=== PATIENT | female | born 1955 | race Caucasian/White ===

== ENCOUNTER 2019-04-17 16:12 | Outpatient (CLI) | payer MEDICARE, BC ==
[~2019-04-17] VITALS: Ht 157.5 cm; Wt 52.3 kg
[2019-04-17 16:58] VITALS: BP 147/85; Ht 157.5 cm; Wt 52.3 kg
[2019-04-17] MEDS ORDERED: TRAZODONE HCL150 MG PO (18:01)
[2019-04-17] MEDS ORDERED: SINGULAIR10 MG PO (18:02)
[2019-04-17] MEDS ORDERED: PEPCID40 MG PO (18:02)
[2019-04-17] MEDS ORDERED: MYSOLINE 50 MG50 MG PO (18:03)
[2019-04-17] MEDS ORDERED: COMBIVENT RESPIM4 GM INH (18:04)
[2019-04-17] MEDS ORDERED: BUPROPION HCL75 MG PO (18:07)
[2019-04-17] MEDS ORDERED: CYMBALTA60 MG PO (18:08)
[2019-04-17 19:22] LABS: BASOPHILS 0.5 % (0-2); EOSINOPHILS 1.6 % (0-7); HEMATOCRIT 40.6 % (36.0-48.0); HEMOGLOBIN 13.6 g/dL (12-16); MCH 33.7 pg (26.0-34.0); MCHC 33.5 g/dL (31.0-37.0); MCV 100.5 fL (80.0-100.0); MEAN PLATELET VOLUME 9.8 fL (7.4-10.4); MONOCYTES 10.7 % (2-11); NEUTROPHILS 46.2 % (40-80); PLATELET COUNT 143 10x3/uL (130-400); RBC 4.04 10x6/uL (4.00-5.40); WBC 3.7 10x3/uL (4.8-10.8)
[2019-04-17 19:33] LABS: APTT 26.6 SECONDS (22.8-39.4); INR 1.02 (0.85-1.17); PROTIME 12.9 SECONDS (11.6-15.0)
[2019-04-17 19:35] LABS: CALC OSMOLALITY 281 mosm/kg (275-300); CALCIUM 9.2 mg/dL (8.5-10.1); CARBON DIOXIDE 27.8 mmol/L (21.0-32.0); CHLORIDE - SERUM 103 mmol/L (98-107); CREATININE - SERUM 0.5 mg/dL (0.6-1.3); GLUCOSE 78 mg/dL (74-106); POTASSIUM - SERUM 3.8 mmol/L (3.5-5.1); SODIUM 142 mmol/L (136-145); UREA NITROGEN 13 mg/dL (7-18); eGFR NON AFRICAN AMERICAN > 90 mL/min (90-120)
[2019-04-17 19:39] LABS: AMYLASE - SERUM 45 U/L (25-115); LIPASE 166 U/L (73-393); MAGNESIUM - SERUM 1.9 mg/dL (1.8-2.4)
[2019-04-17 21:00] VITALS: BP 149/81
--- NOTE | 2019-04-17 21:44 | NUR ---
DISCHARGE INSTRUCTIONS GIVEN. REMOVED IV TO RIGHT AC WITH CATHETER TIP INTACT. PRESSURE DRESSING APPLIED. PT ESCORTED OUT IN WHEELCHAIR BY CHANNEL EXECUTIVE, WITH FAMILY MEMBER AT HER SIDE. ESCORTED TO AWAITING VEHICLE WITH FAMILY MEMBER. TOLD TO CALL TONIGHT OR RETURN TO ER IF ANY PROBLEMS ARISE.
== END 2019-04-17 21:46 | disposition home or self-care (01) ==
LOC: OBSVTIME → D.MS 16:12 → D.OPS 16:12 → D.MS 16:12 → D.OPS 21:46 → D.MS 21:46 → EDSTATUS 04-20 11:56 → D.OPS 04-20 11:57
PROVIDERS: ATTEND Internal Medicine Nephrology
DX: R10.9 Unspecified abdominal pain (principal)

== ENCOUNTER 2019-10-27 07:39 | Day surgery (SDC) | payer MEDICARE, BC ==
[~2019-10-27] VITALS: Ht 157.5 cm; Wt 50.0 kg
[~2019-10-27 07:39] MED LIST: BUPROPION HCL75 MG PO; COMBIVENT RESPIM4 GM INH; CYMBALTA60 MG PO; MYSOLINE 50 MG50 MG PO; PEPCID40 MG PO; SINGULAIR10 MG PO; TRAZODONE HCL150 MG PO
[2019-10-27 08:33] VITALS: BP 128/78; Ht 157.5 cm; Wt 50.0 kg
[2019-10-27 08:33] LABS: HEMATOCRIT 44.7 % (36.0-48.0); HEMOGLOBIN 15.1 g/dL (12-16); MCH 33.8 pg (26.0-34.0); MCHC 33.8 g/dL (31.0-37.0); MEAN PLATELET VOLUME 9.7 fL (7.4-10.4); RBC 4.47 10x6/uL (4.00-5.40); RDW 12.1 % (11.5-14.5); WBC 3.8 10x3/uL (4.8-10.8)
[2019-10-27] MEDS ORDERED: CALCIUM 500 +1 EAC3 PO (08:41)
[2019-10-27] MEDS ORDERED: FOLATE0.4 MG PO (08:41)
[2019-10-27] MEDS ORDERED: VITAMIN B-122500 MCG INJ (08:42)
--- NOTE | 2019-10-27 12:56 | NUR ---
1230 DRESSED. AWAKE & ALERT. GIVEN DISCHARGE INFORMATION INCLUDING MED REC, RTC APPT., POST ENDOSCOPIC PROCEDURES OUTPATIENT D/C INSTRUCTIONS. PT VOICED UNDERSTANDING. TO PRIVATE CAR PER WHEELCHAIR BY STAFF. HOME WITH FRIEND, ONOFRE LISA. Rajiv DUBOIS R.N.
--- NOTE | 2019-10-29 16:31 | OP ---
PATIENT NAME: MARYANNE DOMINIQUE MEDICAL RECORD: [id number] :55 LOCATION:[facility] ADMISSION DATE: SURGEON: CONSTANTINE CABRAL MD DATE OF OPERATION: 10/27/2019 PREOPERATIVE DIAGNOSES: 1. Weight loss. 2. History of Clostridium difficile colitis. 3. Chronic nausea. 4. Lack of appetite. POSTOPERATIVE DIAGNOSES: 1. Weight loss. 2. History of Clostridium difficile colitis. 3. Chronic nausea. 4. Lack of appetite. 5. Possible Mosqueda to the distal esophagus. 6. Prepyloric gastritis, mild. 7. No evidence of colitis or proctitis. No evidence of ileitis. 8. Tortuous and dilated ileum. 9. No anastomotic stricture. PROCEDURES: 1. Esophagogastroduodenoscopy with mid esophageal biopsies, distal esophageal biopsies to rule out Mosqueda's as well as antral biopsies to rule out Helicobacter pylori. 2. Total proctoscopy/colonoscopy with random biopsies. Also, stool cultures and stool studies. 3. Ileoscopy with biopsies. SURGEON: Constantine Cabral MD ENGINEERING INSTRUCTOR: None. BLOOD LOSS: Minimal. ANESTHESIA: IV sedation. COMPLICATIONS: None. DESCRIPTION OF PROCEDURE: The patient was conveyed to endoscopy suite electively on 10/27/2019. IV sedation was induced by the anesthesia staff. A bite block was inserted. A gastroscope was inserted into the mouth. It was advanced easily into the hypopharynx. The esophagus was easily intubated as was stomach and duodenum. Upon withdrawal, retroflexed and angulus views were obtained. Antral biopsies were obtained. These were cold endoscopic biopsies. Distal esophageal biopsies were obtained and again here these were cold endoscopic biopsies. Mid esophageal biopsies were then performed to rule out eosinophilic esophagitis. The patient was turned 180 degrees and placed in the Rowland position. A digital rectal examination was performed. A colonoscope was inserted through the anus. It was easily advanced up to the anastomosis, which was at 20 cm. I then intubated the ileum. There was no evidence of stricturing. No evidence of ileitis. Random ileal biopsies were obtained. I then withdrew back into the OPERATIVE REPORT [id number] MARYANNE DOMINIQUE colon. I noted no polyps, no masses. There was some formed stool within the rectum. Random colon and rectal biopsies were obtained. There was perhaps a small bit of colon, but it was mainly rectum that was left. Stool cultures were obtained for a culture sensitivity as well as multiple stool studies. A retroflexed view was obtained in the rectum. I then unretroflexed the scope and removed it under direct vision. I will see the patient in my office in 2-3 weeks. TRANSINT:[id number] Voice Confirmation ID: [id number] DOCUMENT ID: [id number] CONSTANTINE CABRAL MD at 1631 CC: GURWINDER PENN DO [id number] DICTATION DATE: 10/27/19 1155 CARPENTER ASSEMBLER: 10/27/19 1740 [facility] 10/27/19 [facility] [address] [place] [address]
[2019-10-29 17:08] LABS: OVA + PARASITE EXAM Final report (())
== END 2019-10-27 12:30 | disposition home or self-care (01) ==
LOC: D.OPS 07:39
PROVIDERS: Anesthesiology; ATTEND Surgery
DX: R63.4 Abnormal weight loss (principal); R11.0 Nausea; R63.0 Anorexia; Z87.19 Personal history of other diseases of the digestive system

== ENCOUNTER 2019-12-25 06:25 | Day surgery (SDC) | payer MEDICARE, BC ==
[~2019-12-25] VITALS: Ht 157.5 cm; Wt 49.9 kg
--- NOTE | ~2019-12-25 | OP ---
PATIENT NAME: MARYANNE DOMINIQUE MEDICAL RECORD: [id number] :55 LOCATION:[facility] ADMISSION DATE: SURGEON: CONSTANTINE CABRAL MD DATE OF OPERATION: 12/25/2019 PREOPERATIVE DIAGNOSIS: Biliary dyskinesia. POSTOPERATIVE DIAGNOSES: Biliary dyskinesia with symptomatic gallstones. PROCEDURES: 1. Laparoscopic cholecystectomy. 2. Intraoperative cholangiography without immediate surgeon interpretation. SURGEON: Constantine Cabral MD GAS SUBSTATION OPERATOR: None. BLOOD LOSS: Minimal. ANESTHESIA: General. DRAINS: A 10-Albanian round [place] drain COMPLICATIONS: None. The risks, possible complications and alternatives to the procedure were explained to the patient. She elects to proceed. The discussion specifically included, but was not limited to, bleeding requiring emergency reoperation, infection, intestinal injury as well as an open procedure. OPERATIVE COURSE: The patient was conveyed to the operating room electively on 12/25/2019. General anesthesia was induced by the anesthesia staff. I elected for a cutdown procedure as the patient has undergone a subtotal colectomy and likely will have significant intra-abdominal adhesions. Through the patient's midline scar, an incision was accomplished. I dissected down to the fascia. Stay sutures of 0 Vicryl were placed in the midline one cephalad to the other. An incision was accomplished. The peritoneal cavity was entered bluntly. CO2 insufflation was begun. Indeed, there were extensive intraabdominal adhesions. This necessitated a fifth port. Two 5-mm ports were placed in the right side of the abdomen. I began a sharp adhesiolysis. The adhesiolysis took 35 minutes. At no time was there any apparent intestinal injury. I created enough working space, so that 2 more trocars were inserted. One was inserted in the epigastrium. Another one was inserted in the right upper quadrant. I grasped the gallbladder. I advanced a cholangiogram trocar. I punctured the fundus of the gallbladder. I then aspirated bile. I injected dye. Under real time fluoroscopy, this could be seen filling the bile ducts. The cholangiogram trocar was removed. The gallbladder was grasped and retracted cephalad. The infundibulum was grasped and retracted laterally. Blunt dissection was begun in triangle of Calot. One cystic artery and one cystic duct were identified. These were clipped multiply and divided between clips. The gallbladder was then excised from its bed in the liver. It was placed within a bag retrieval device and was withdrawn through the 12-mm trocar site. OPERATIVE REPORT [id number] MARYANNE DOMINIQUE A 12-mm trocar was replaced and the abdomen reinsufflated. I irrigated and aspirated the right upper quadrant. There was no bleeding even at low pressure of 8. The trocars were removed and the abdomen desufflated. The fascia at the 12-mm trocar site was closed with interrupted horizontal mattress 0 Vicryls. The drain was sutured to skin with a 4-0 nylon. The skin at all the operative sites was closed with interrupted intracuticular 3-0 Vicryls. Benzoin and Steri-Strips were applied. The patient was then extubated and conveyed to post-anesthesia care unit where she was in stable condition. The patient will be taught drain care. She is going to follow up with me in the office next week for the drain removal. TRANSINT:[id number] Voice Confirmation ID: [id number] DOCUMENT ID: [id number] CONSTANTINE CABRAL MD CC: [id number] DICTATION DATE: 01/11/20 1446 SANITARIAN AIDE: 01/11/20 1804 [facility] 12/25/19 [place] [id number] [place] [id number]
[~2019-12-25 06:25] MED LIST changes: +CALCIUM 500 +1 EAC3 PO; +FOLATE0.4 MG PO; +VITAMIN B-122500 MCG INJ
[2019-12-25 06:57] LABS: BASOPHILS 0.3 % (0-2); EOSINOPHILS 3.4 % (0-7); HEMATOCRIT 42.5 % (36.0-48.0); HEMOGLOBIN 14.4 g/dL (12-16); MCH 34.2 pg (26.0-34.0); MCHC 33.9 g/dL (31.0-37.0); MEAN PLATELET VOLUME 9.8 fL (7.4-10.4); MONOCYTES 10.9 % (2-11); NEUTROPHILS 51.4 % (40-80); PLATELET COUNT 159 10x3/uL (130-400); RBC 4.21 10x6/uL (4.00-5.40); RDW 12.3 % (11.5-14.5); WBC 3.9 10x3/uL (4.8-10.8)
[2019-12-25 06:59] LABS: ANION GAP 9.1 mmol/L (8-16); CARBON DIOXIDE 34.4 mmol/L (21.0-32.0); CREATININE - SERUM 0.9 mg/dL (0.6-1.3); POTASSIUM - SERUM 4.5 mmol/L (3.5-5.1)
[2019-12-25] MEDS ORDERED: COPAXONE INJ20 MG/ML SQ (08:13)
[2019-12-25 08:14] VITALS: BP 114/76; Ht 157.5 cm; Wt 49.9 kg
--- NOTE | 2019-12-25 15:08 | NUR ---
1300 EPTIED 80ML OF JESI DRAIN. 1325 EMPTIED 30 ML OF DRAINAGE.
--- NOTE | 2019-12-25 15:09 | NUR ---
1325 IV REMOVED AND INSTRUCTIONS GIVEN ABDOMEN SOFT AND DENIES PAIN
== END 2019-12-25 13:30 | disposition home or self-care (01) ==
LOC: D.OPS 06:25
PROVIDERS: ATTEND Surgery
DX: K82.8 Other specified diseases of gallbladder (principal); K80.80 Other cholelithiasis without obstruction

== ENCOUNTER → 2020-01-04 11:24 | Outpatient (CLI) | payer MEDICARE, BC ==
[2019-12-25 08:14] VITALS: BMI 20.1
[~2020-01-04 11:24] MED LIST changes: +COPAXONE INJ20 MG/ML SQ
[2020-01-04 12:05] LABS: ALBUMIN 3.4 g/dL (3.4-5.0); ANION GAP 11.4 mmol/L (8-16); BILIRUBIN - TOTAL 0.4 mg/dL (0.2-1.3); CALCIUM 8.9 mg/dL (8.5-10.1); CARBON DIOXIDE 28.2 mmol/L (21.0-32.0); CREATININE - SERUM 0.9 mg/dL (0.6-1.3); MAGNESIUM - SERUM 1.6 mg/dL (1.8-2.4); PHOSPHOROUS 3.1 mg/dL (2.5-4.9); POTASSIUM - SERUM 3.6 mmol/L (3.5-5.1); PROTEIN - SERUM 6.9 g/dL (6.4-8.2)
== END | disposition home or self-care (01) ==
LOC: D.LAB 11:24
PROVIDERS: ATTEND Surgery
DX: R10.9 Unspecified abdominal pain (principal); R11.2 Nausea with vomiting, unspecified; R19.7 Diarrhea, unspecified

== ENCOUNTER → 2020-01-21 11:40 | Outpatient (CLI) | payer MEDICARE, BC ==
[2019-12-25 08:14] VITALS: BMI 20.1
== END | disposition home or self-care (01) ==
LOC: D.NM 11:40
PROVIDERS: ATTEND Surgery
DX: R11.0 Nausea (principal)